=== PATIENT | male | born 1945 | race Caucasian/White ===

== ENCOUNTER 2022-09-03 07:33 | Emergency (ER) | payer MEDICARE, BC, SELFPAY ==
--- NOTE | ~2022-09-03 | XR_ITS ---
EXAMINATION: XR RIBS, LEFT WITH CHEST XR SHOULDER, LEFT XR HAND/WRIST, LEFT CLINICAL INFORMATION: Fall. Pain. COMPARISON: Chest radiograph dated 01/16/2018. TECHNIQUE: PA view of the chest as well as 3 views of the left ribs. AP, Grashey, and scapular Y views of the left shoulder. AP, oblique, lateral, and scaphoid views of the left hand and wrist. FINDINGS: LEFT RIBS AND CHEST: No focal airspace consolidation. No pleural effusion or pneumothorax. Stable cardiomediastinal silhouette. Right upper quadrant surgical clips. No displaced fracture. No concerning lytic or blastic osseous lesion. No abnormal soft tissue calcification. LEFT SHOULDER: No acute fracture or dislocation. Severe glenohumeral joint space narrowing with prominent flattening/bony remodeling, subchondral sclerosis, and large marginal osteophytes. Probable posterosuperior ossified loose bodies. Severe acromioclavicular joint space narrowing with large marginal osteophytes. LEFT HAND AND WRIST: No acute fracture or dislocation. Severe joint space narrowing with bony remodeling and marginal osteophytes at the 1st carpometacarpal joint with a radial ossified loose body measuring up to 1.1 cm. More [id number] osteoarthritis at the triscaphe joint. Additional osteoarthritis scattered throughout the interphalangeal joints, most prominent at the distal interphalangeal joints. There are associated central erosions as well as circumferential soft tissue swelling, consistent with erosive osteoarthritis. XR/XR shoulder LT min 2V IMPRESSION: LEFT RIBS: Unremarkable examination. LEFT SHOULDER: No acute fracture or dislocation. Severe glenohumeral and acromioclavicular osteoarthritis with ossified loose bodies. LEFT HAND AND LEFT WRIST: No acute fracture or dislocation. Severe osteoarthritis at the 1st carpometacarpal joint with a radial ossified loose body. More [id number] osteoarthritis at the triscaphe joint. Additional osteoarthritis scattered throughout the interphalangeal joints, most prominent at the distal interphalangeal joints. Central erosions and soft tissue swelling, consistent with erosive osteoarthritis.
--- NOTE | ~2022-09-03 | XR_ITS ---
EXAMINATION: XR RIBS, LEFT WITH CHEST XR SHOULDER, LEFT XR HAND/WRIST, LEFT CLINICAL INFORMATION: Fall. Pain. COMPARISON: Chest radiograph dated 01/16/2018. TECHNIQUE: PA view of the chest as well as 3 views of the left ribs. AP, Grashey, and scapular Y views of the left shoulder. AP, oblique, lateral, and scaphoid views of the left hand and wrist. FINDINGS: LEFT RIBS AND CHEST: No focal airspace consolidation. No pleural effusion or pneumothorax. Stable cardiomediastinal silhouette. Right upper quadrant surgical clips. No displaced fracture. No concerning lytic or blastic osseous lesion. No abnormal soft tissue calcification. LEFT SHOULDER: No acute fracture or dislocation. Severe glenohumeral joint space narrowing with prominent flattening/bony remodeling, subchondral sclerosis, and large marginal osteophytes. Probable posterosuperior ossified loose bodies. Severe acromioclavicular joint space narrowing with large marginal osteophytes. LEFT HAND AND WRIST: No acute fracture or dislocation. Severe joint space narrowing with bony remodeling and marginal osteophytes at the 1st carpometacarpal joint with a radial ossified loose body measuring up to 1.1 cm. More [id number] osteoarthritis at the triscaphe joint. Additional osteoarthritis scattered throughout the interphalangeal joints, most prominent at the distal interphalangeal joints. There are associated central erosions as well as circumferential soft tissue swelling, consistent with erosive osteoarthritis. XR/XR hand wrist LT IMPRESSION: LEFT RIBS: Unremarkable examination. LEFT SHOULDER: No acute fracture or dislocation. Severe glenohumeral and acromioclavicular osteoarthritis with ossified loose bodies. LEFT HAND AND LEFT WRIST: No acute fracture or dislocation. Severe osteoarthritis at the 1st carpometacarpal joint with a radial ossified loose body. More [id number] osteoarthritis at the triscaphe joint. Additional osteoarthritis scattered throughout the interphalangeal joints, most prominent at the distal interphalangeal joints. Central erosions and soft tissue swelling, consistent with erosive osteoarthritis.
--- NOTE | ~2022-09-03 | XR_ITS ---
EXAMINATION: XR RIBS, LEFT WITH CHEST XR SHOULDER, LEFT XR HAND/WRIST, LEFT CLINICAL INFORMATION: Fall. Pain. COMPARISON: Chest radiograph dated 01/16/2018. TECHNIQUE: PA view of the chest as well as 3 views of the left ribs. AP, Grashey, and scapular Y views of the left shoulder. AP, oblique, lateral, and scaphoid views of the left hand and wrist. FINDINGS: LEFT RIBS AND CHEST: No focal airspace consolidation. No pleural effusion or pneumothorax. Stable cardiomediastinal silhouette. Right upper quadrant surgical clips. No displaced fracture. No concerning lytic or blastic osseous lesion. No abnormal soft tissue calcification. LEFT SHOULDER: No acute fracture or dislocation. Severe glenohumeral joint space narrowing with prominent flattening/bony remodeling, subchondral sclerosis, and large marginal osteophytes. Probable posterosuperior ossified loose bodies. Severe acromioclavicular joint space narrowing with large marginal osteophytes. LEFT HAND AND WRIST: No acute fracture or dislocation. Severe joint space narrowing with bony remodeling and marginal osteophytes at the 1st carpometacarpal joint with a radial ossified loose body measuring up to 1.1 cm. More [id number] osteoarthritis at the triscaphe joint. Additional osteoarthritis scattered throughout the interphalangeal joints, most prominent at the distal interphalangeal joints. There are associated central erosions as well as circumferential soft tissue swelling, consistent with erosive osteoarthritis. XR/XR ribs LT min 3V w [id number] IMPRESSION: LEFT RIBS: Unremarkable examination. LEFT SHOULDER: No acute fracture or dislocation. Severe glenohumeral and acromioclavicular osteoarthritis with ossified loose bodies. LEFT HAND AND LEFT WRIST: No acute fracture or dislocation. Severe osteoarthritis at the 1st carpometacarpal joint with a radial ossified loose body. More [id number] osteoarthritis at the triscaphe joint. Additional osteoarthritis scattered throughout the interphalangeal joints, most prominent at the distal interphalangeal joints. Central erosions and soft tissue swelling, consistent with erosive osteoarthritis.
[2022-09-03 07:36] VITALS: BP 194/80; PULSE 72; RESP 16; TEMP 36.4; O2SAT 96; BMI 39.9
--- NOTE | 2022-09-03 07:57 | ED_ITS ---
HPI - Extremity Problem General Chief complaint: Extremity Injury, Upper Stated complaint: L shoulder injury Time Seen by Provider: 09/03/22 07:50 Source: patient and family Mode of arrival: ambulatory Limitations: no limitations History of Present Illness HPI Narrative: This is a 77-year-old male with a history of hypertension, hyperlipidemia, COPD, chronic kidney disease, insulin-dependent diabetes who is right-hand dominant who presents to the ER with left shoulder pain, left wrist pain and left rib pain after having a fall just prior to arrival. Patient reports he was chasing his dog when he tripped and fell hitting the left shoulder, left wrist and left ribs. Denies any his head or loss of consciousness. No AC therapy use. Patient is ambulatory into the ER. He denies any abdominal pain, vomiting, neck pain, back pain, vision changes. Related Data Previous Rx's Medication Instructions Recorded oxycodone 5 mg tablet 5 mg PO Q6H PRN pain #15 tabs 09/03/22 Allergies Allergy/AdvReac Type Severity Reaction Status Date / Time Penicillins [PCN] Allergy Unknown UNKNOWN Verified 09/03/22 07:39 Review of Systems Review of Systems: Yes all other systems are reviewed and are negative Constitutional: Constitutional: Reports no additional constitutional complaints, Denies body ache(s), Denies chills, Denies fever(s), Denies headache(s) and Denies weakness Eyes: Eyes: Reports no additional eye complaints and Denies change in vision ENT: Reports system reviewed and no additional complaints, except as documented, Denies dizziness, Denies headache(s), Denies nasal congestion, Denies nasal discharge and Denies neck pain Cardiovascular: Cardiovascular: Reports no additional cardiovascular complaints, Denies chest pain, Denies leg edema and Denies dyspnea Respiratory: Respiratory: Reports no additional respiratory complaints, Denies cough and Denies dyspnea Gastrointestinal: Gastrointestinal: Reports no additional gastrointestinal complaints, Denies abdominal pain, Denies diarrhea, Denies nausea and Denies vomiting Genitourinary: Genitourinary: Denies urinary incontinence Musculoskeletal: Musculoskeletal: Reports no additional musculoskeletal complaints, Denies back pain, Reports arthralgias, Reports joint swelling, Reports limited range of motion, Denies neck pain, Denies numbness and Denies tingling Integumentary/Breasts: Skin/Breast: Reports system reviewed and no additional complaints, except as docu and Denies rash Neurologic: Reports system reviewed and no additional complaints, except as documented, Denies Abnormal speech present, Denies dizziness, Denies headache(s), Denies numbness, Denies tingling and Denies weakness PMFSH Past Medical History Attestation statement: The following information was validated with the patient. Source: old records reviewed and nursing notes reviewed Social History Social History Advance Directives: Yes Advance Directives Information Provided: No Advance Directives on File: No Physical Exam Vital Signs: Vital Signs: Last Vital Signs Temp 97.6 F 09/03/22 07:36 Pulse 72 09/03/22 07:36 Resp 16 09/03/22 07:36 BP 194/80 H 09/03/22 07:36 Pulse Ox 96 09/03/22 07:36 O2 Del Method Room Air 09/03/22 07:36 BMI result Body Mass Index 39.9 Const: General: cooperative, healthy appearing, comfortable and no acute distress Orientation/consciousness: patient oriented x3 Limitations: no limitations HEENT: Head: Yes normal to inspection Ears: hearing grossly normal bilaterally General nose exam: Normal external nose present Face and si nus: Yes normal facial exam Mouth: Normal oral and palatal mucosa present Throat: Yes posterior oropharynx normal Eyes: General: appearance normal, both eyes and all related structures Pupils: Equal, round and reactive pupils present Neck: Neck: Yes normal visual inspection Chest: Other: Patient with tenderness over the left lateral chest wall with no crepitus, ecchymosis or deformity. Chest palpation & inspection: normal inspection of the chest Resp: Effort & Inspection: normal respiratory effort Auscultation: clear to auscultation bilaterally Cardio: Rate: regular rate Rhythm: regular rhythm Peripheral pulses: Peripheral pulses 2+ throughout GI: Inspection: Yes normal to inspection Palpation (GI): Soft to palpation and nontender Auscultation: normal bowel sounds Back/Spine/Pelvis: Thoracic/Lumbar Spine: thoracic and lumbar spine normal to inspection Skin: General skin exam: no rashes or lesions noted Neuro: General: patient oriented x3, moves all extremities, no focal motor deficits and normal sensation to monofilament Cranial nerves: Yes CN's II-XII intact bilaterally, Yes Equal, round and reactive pupils present, Yes Bilaterally intact EOM present, Yes Nystagmus not present, Yes Normal facial strength present and Yes Midline tongue present Cognition (Neuro): normal cognition Speech: No Abnormal speech present Gait exam (Neuro): Normal gait present Motor exam (neuro): 5/5 motor strength present throughout Sensory Exam: Normal double simultaneous stimulation for sensation Extrem: Other: The patient is holding the left shoulder in a guarded position. Patient is unable to abduct the extremity due to pain. Patient has palpable radial and ulnar pulses distally. Sensation is intact distally. Patient has no obvious deformity. Patient has swelling and tenderness over the left dorsal wrist with full range of motion both active and passive. Course Course Course Narrative: X-ray show no acute fracture. Likely contusion. There is severe degenerative changes which may also be contributing to the patient's pain. Patient with placed in a sling but I did tell him to use this intermittently and continue to perform range of motion, ice or heat and pain medicine at home. Here he has an orthopedic at [facility] I recommend he follow-up with them. Reviewed worrisome signs and symptoms when to return to the emergency room. Comfortable plan for discharge home Medications Administered Discontinued Medications Generic Name Dose Route Start Last Admin Trade Name Freq PRN Reason Stop Dose Admin Acetaminophen 975 mg 09/03/22 07:56 09/03/22 08:01 Acetaminophen 325 Mg Tablet PO 09/03/22 07:57 975 mg ONCE ONE Administration Oxycodone HCl 10 mg 09/03/22 07:56 09/03/22 08:01 Oxycodone Hcl Immed Release 5 Mg Tablet PO 09/03/22 07:57 10 mg ONCE ONE Administration Medical Decision Making Medical Decision Making [facility] Narrative: 77-year-old male here with left rib pain, left shoulder and wrist pain after mechanical fall just prior to arrival with no reports of hitting of the head, loss of consciousness or AC therapy use. Patient with tenderness over the left lateral chest wall with no ecchymosis, crepitus or deformity. No abdominal pain on exam. Lungs are clear. Vitals are stable. Patient with also some tenderness and limited range of motion of the left shoulder and swelling and tenderness of the left wrist. Will check x-rays of left wrist, left shoulder and left chest Differential Diagnosis Differential Diagnoses: The differential diagnosis associated with the presentation includes Fracture, contusion Independent Interpretation I performed an independent interpretation of an: Plain X-Ray Interpretation: I independently reviewed the x-ray and agree with the radiologist's report Radiology Impression Discussion of test interpretation with radiology: I have reviewed the radiologist's reading. Radiologist Impression: FINDINGS: LEFT RIBS AND CHEST: No focal airspace consolidation. No pleural effusion or pneumothorax. Stable cardiomediastinal silhouette. Right upper quadrant surgical clips. No displaced fracture. No concerning lytic or blastic osseous lesion. No abnormal soft tissue calcification. LEFT SHOULDER: No acute fracture or dislocation. Severe glenohumeral joint space narrowing with prominent flattening/bony remodeling, subchondral sclerosis, and large marginal osteophytes. Probable posterosuperior ossified loose bodies. Severe acromioclavicular joint space narrowing with large marginal osteophytes. LEFT HAND AND WRIST: No acute fracture or dislocation. Severe joint space narrowing with bony remodeling and marginal osteophytes at the 1st carpometacarpal joint with a radial ossified loose body measuring up to 1.1 cm. More [id number] osteoarthritis at the triscaphe joint. Additional osteoarthritis scattered throughout the interphalangeal joints, most prominent at the distal interphalangeal joints. There are associated central erosions as well as circumferential soft tissue swelling, consistent with erosive osteoarthritis. XR/XR shoulder LT min 2V IMPRESSION: LEFT RIBS: Unremarkable examination. ? LEFT SHOULDER: No acute fracture or dislocation. Severe glenohumeral and acromioclavicular osteoarthritis with ossified loose bodies. ? LEFT HAND AND LEFT WRIST: No acute fracture or dislocation. Severe osteoarthritis at the 1st carpometacarpal joint with a radial ossified loose body. More [id number] osteoarthritis at the triscaphe joint. Additional osteoarthritis scattered throughout the interphalangeal joints, most prominent at the distal interphalangeal joints. Central erosions and soft tissue swelling, consistent with erosive osteoarthritis. Discharge Plan Discharge Clinical Impression: Contusion of left shoulder Patient Disposition: Home, Self-Care Instructions: Contusion in Adults (ED) Additional Instructions: Use the sling sparingly Apply heat to the area and perform gentle range of motion Follow-up with your orthopedic doctor mariela Prescriptions: New oxycodone 5 mg tablet 5 mg PO Q6H PRN (Reason: pain) Qty: 15 0RF Rx Instructions: Partial Fill upon patient request. Referrals: iMke Yi MD [Physician] - 1 week Interventions: ED Discharge Assessment Last Done: 09/03/22 09:46 Discharge Date/Time: 09/03/22 09:47
[2022-09-03] MEDS: Acetaminophen 325 MG TABLET 975 MG PO (08:01)
[2022-09-03] MEDS: oxyCODONE HCl Immed Release 5 MG TABLET 10 MG PO (08:01)
--- NOTE | 2022-09-03 09:39 | MHC.EDTECH ---
Sling applied to pt comofrtably
== END 2022-09-03 09:47 | disposition home or self-care (01) ==
PROVIDERS: Emergency Provider Emergency Medicine; PCP Family Medicine
DX: S40.012A Contusion of left shoulder, initial encounter (principal); M25.512 Pain in left shoulder; M25.532 Pain in left wrist; R07.81 Pleurodynia; E11.9 Type 2 diabetes mellitus without complications; W01.10XA Fall on same level from slipping, tripping and stumbling with subsequent striking against unspecified object, initial encounter; Y93.9 Activity, unspecified; Y92.9 Unspecified place or not applicable; Y99.9 Unspecified external cause status; Z79.4 Long term (current) use of insulin; Z79.899 Other long term (current) drug therapy
CPT/HCPCS: 71101; 73030; 73110; 73130; 99283; 99284

== ENCOUNTER → 2023-01-16 10:06 | Outpatient (BNVA) | payer MEDICARE, BC, SELFPAY | PROVIDERS: PCP Family Medicine; Visit Provider Physician Assistant Surgical ==

== ENCOUNTER 2023-02-12 | Outpatient (REF) | payer MEDICARE, BC, SELFPAY ==
[2023-02-15 14:37] LABS: H Pylori Breath Test Negative (Negative)
== END 2023-02-12 00:01 | disposition home or self-care (01) ==
LOC: HO.LNP
PROVIDERS: Visit Provider Physician Assistant Surgical
DX: E66.9 Obesity, unspecified (principal); E11.22 Type 2 diabetes mellitus with diabetic chronic kidney disease; I12.9 Hypertensive chronic kidney disease with stage 1 through stage 4 chronic kidney disease, or unspecified chronic kidney disease; N18.9 Chronic kidney disease, unspecified; Z11.0 Encounter for screening for intestinal infectious diseases
CPT/HCPCS: 83013

== ENCOUNTER 2023-02-12 13:52 | Outpatient (AMB) | payer MEDICARE, BC, SELFPAY ==
--- NOTE | 2023-02-12 14:02 | MHC.OFFVISWM ---
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 Allergies Penicillins [PCN] Allergy (Unknown, Verified 09/03/22 07:39) UNKNOWN Medication List - Last Reconciled 02/12/23 by SHERIE Thomas albuterol sulfate 90 mcg/actuation inhalation allopurinol mg PO amlodipine 10 mg PO DAILY atorvastatin 80 mg PO DAILY calcitriol 0.5 mcg PO DAILY carvedilol 25 mg PO BID cholecalciferol (vitamin D3) 50 mcg PO DAILY clonidine HCl 0.1 mg PO TID doxazosin mg PO duloxetine 120 mg PO DAILY fluticasone furoate-vilanterol 200-25 mcg/dose (Breo Ellipta) 1 ea inhalation DAILY insulin glargine (Basaglar KwikPen U-100 Insulin) units subcut semaglutide (Ozempic) 0.25 mg subcut QWEEK tamsulosin 0.4 mg PO DAILY HPI HPI Comments History of Present Illness Details Pt is here to start the [facility] weight loss program. He heard about our program from a sign in the ER. His goal is to lose weight and achieve a healthy lifestyle as well as to improve, if not resolve, obesity related medical conditions, including dm, htn, dea. He reports first being concerned about his weight 20 years ago, highest weight to date was 315. He originally presented to the [facility] clinic on 01/16/23 with a weight of 315.4 pounds and a BMI of 39.9. Current weight is 314.6 pounds with a BMI of 39.8. He has tried multiple methods of weight loss including fad diets without permanent results. He lives with his . 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 He wakes at:?8 am, and goes to bed at?930 pm. Dinner is at 5 pm. Breakfast: cereal raison bran or cheerios w skim milk or toast or yogurt AM snack: skip Lunch: sandwich or two sandwiches, salad or tuna PM snack: fruit Dinner: chicken parm, beef stroganoff, fish, After dinner: frozen ice cream and fruit Other snacks: none Liquids: 24 oz water, 1-2 cans diet coke daily, 24 oz lemonade, 3 diet snapple per week Alcohol/marijuana/tobacco intake: none Exercise: none, no gym membership, no exercise equip in the home. GERD score: 0 DEMETRIS score: 2 ESS score: 3 QOL score: 91 PENDING SALE TO [facility] Surgical History (Updated 02/12/23 @ 16:30 by SHERIE Thomas) Hx of arthroscopic knee surgery Hx of colonoscopy Hx of appendectomy Hx of total knee replacement Hx of bilateral hip replacements Hx laparoscopic cholecystectomy Social History Alcohol intake: never Patient Tobacco Use Status: Never used Tobacco Physical Exam Vital Signs: BMI result Body Mass Index 39.8 Const General: cooperative, healthy appearing and no acute distress Orientation/consciousness: patient oriented x3 HEENT Head: Yes normal to inspection Ears: hearing grossly normal bilaterally General nose exam: Normal external nose present Face and sinus: Yes normal facial exam Eyes General: appearance normal, both eyes and all related structures Resp Effort & Inspection: normal respiratory effort Auscultation: clear to auscultation bilaterally Cardio Rate: regular rate Rhythm: regular rhythm Heart sounds: S1 normal heart sound present and S2 normal heart sound present GI Inspection: Yes normal to inspection, No distended, Yes incision (chevron incision well healed) and Yes obesity Palpation (GI): Soft to palpation, nontender and no guarding Auscultation: normal bowel sounds Skin General skin exam: no rashes or lesions noted Neuro General: patient oriented x3 Extrem General: Yes edema (2+ L>R LE edema) Psych Appearance: grossly normal Mental Status: mental status grossly normal Speech and movement: Normal speech and movement present Affect: normal affect Attitude: cooperative Assessment & Plan Assessment & Plan (1) Obesity (BMI 30-39.9): Code(s): E66.9 - Obesity, unspecified Plan: This is a?77 yo male who will start our SWL program to prepare for bariatric surgery.? Blood work, h pylori , CXR, ECG, Abd US and UGI have been ordered. He is being scheduled for RD and BH initial consultations. He will start SWL classes and watch the first three videos before his next appointment. ? Adequate sleep of 7-8 hours per night is recommended, awakening at 8 am and going to bed around 930 pm ? Purchase body composition analyzer scale (Connor gacria or Ollie recommended) and check weight weekly. The best time to do this is first thing in the morning after going to the bathroom. 1. Nutritional counseling: Be sure to careful read the number of scoops per shake Start with 3 Celebrate Rebuild shakes ([facility] [employer], [employer], [employer]) First shake, (2 scoops in 20 oz low fat unsweetened almond milk, 30 calories) at 9am-11am, Second shake, (2 scoops in 20 oz low fat unsweetened almond milk, 30 calories) at 11am-1pm 1 Celebrate protein bar ([facility] [employer], [employer], [employer]) at 1pm-3pm Dinner at 5pm (11 forks of protein and 11 forks of salad/vegetables). Meal to include lean meat (beef, fish, pork, turkey, chicken), cooked vegetables or a salad with olive oil and/or fruits (berries, pears, apples, kiwi). Avoid salt, breads, potatoes, rice, pasta, desserts. Another protein bar at 7pm-9pm. Try to drink 64 oz of water daily and avoid soda and juices. ?2. Each shake would be drunk slowly, like coffee in a period of 2 hours. ?3. Cut each bar in 4 pieces and eat each piece in 30 min ?to make each bar last 2 hours. ?4. I emphasized the importance of measuring accurately the food portion and measure it carefully when serving the food on the plate ?5. The meal portions include 11 full-size forks of meat and 11 full-size forks of salad. You always eat the meat portion but you can replace up to half of the forks of salad/vegetables with rice, potatoes or pasta, or a fruit ?if you like. The less you do it the better weight loss will be. ?6. One full-size fork is what can be scooped on the fork without falling aside and not what can be bit with the fork. Use regular forks like those you find in a typical restaurant. ?7.? Please send me weight measurements as soon as possible and then once a week. Always include your diet and exercise plan. Alternatively come weekly at the office for weight checks and send me the measurements. ?8. Exercise counseling: Begin by watching a stretching for beginners video. Start slowly and begin to stretch your muscles. You should do this before and after each exercise session to prevent injury. Please join [facility] gym near your home. Ask the emergency preparedness manager or one of the trainers how to use the machines if you are unfamiliar with them. Start elliptical with a resistance of 0. Increase resistance by 1 every 3 min to your most comfortable resistance with a max resistance of 6. Reduce the resistance by 1 every 3 minutes back down to 2 and repeat cycles for 300 calories. Alternatively, start treadmill with a speed of 2.0 and incline of 0, increasing incline by 1 every 3 minutes to the highest comfortable level (max 6 for now) then decrease in the same fashion. Repeat process to a goal of 300 calories. Goal of 2000 calories burned or more weekly. You may also consider use of the stationary bike. The easiest would be to chose the fat-burn or interval training program on the machine and do this until you reach the 300 calorie goal. Alternatively, you can manually adjust the resistance in a similar fashion as mentioned above, (resistance of 0-6 with a goal speed of 12 mph). Tracking calories is essential. 9. Alternatively start walking outside daily, tracking calories with a goal of 300 calories per day, daily. You can download the [employer] which can track your time, distance and calories while walking outside. You press start in the jo[employer]quin when you start and then stop when you are finished. 10.? It is important to communicate by text weekly your weight measurements and if you are having any problems with the plans. It is also critical that you pay very close attention to your blood sugars and your blood pressure. Check you blood sugar at least twice a day when you start these plans. Also check your blood pressure daily if you can. You mentioned that you have a BP cuff at home but there may be an issue with it. I would be happy to look at it when you come in to your next appointment. 11. Please get labs, EKG and chest X-Ray within 1 week. 12. Discussed and answered all questions regarding?obtained consent to participate in the [facility]?Registry. 13. Please follow the diet plan exactly, without any change. If you do not like something about the plan or you feel hungry, you need to communicate with me so I can help you revise the plan. You should not change the plan yourself. Text me at [phone] 14. Goal is to lose at least 12 pounds in the first month 15. Goal is to lose 10% of your weight before surgery, which is about 31 lbs. Ultimate weight goal: 283 lbs before surgery Patient is obese and is not considered stable at this time.?I spent a total of 70 minutes reviewing/updating records, examining the patient and counseling the patient on weight management as detailed above. Orders: Orders Insulin Today E11.9 - Type 2 diabetes mellitus without complications, E66.9 - Obesity, unspecified, I10 - Essential (primary) hypertension, N18.9 - Chronic kidney disease, unspecified IRON PROFILE Today E11.9 - Type 2 diabetes mellitus without complications, E66.9 - Obesity, unspecified, I10 - Essential (primary) hypertension, N18.9 - Chronic kidney disease, unspecified Zinc Today E11.9 - Type 2 diabetes mellitus without complications, E66.9 - Obesity, unspecified, I10 - Essential (primary) hypertension, N18.9 - Chronic kidney disease, unspecified Vitamin B1 Today E11.9 - Type 2 diabetes mellitus without complications, E66.9 - Obesity, unspecified, I10 - Essential (primary) hypertension, N18.9 - Chronic kidney disease, unspecified Vitamin A Today E11.9 - Type 2 diabetes mellitus without complications, E66.9 - Obesity, unspecified, I10 - Essential (primary) hypertension, N18.9 - Chronic kidney disease, unspecified Vitamin D 25-OH Total Today E11.9 - Type 2 diabetes mellitus without complications, E66.9 - Obesity, unspecified, I10 - Essential (primary) hypertension, N18.9 - Chronic kidney disease, unspecified Hemoglobin A1c Today E11.9 - Type 2 diabetes mellitus without complications, E66.9 - Obesity, unspecified, I10 - Essential (primary) hypertension, N18.9 - Chronic kidney disease, unspecified XR chest 2V Today E11.9 - Type 2 diabetes mellitus without complications, E66.9 - Obesity, unspecified, I10 - Essential (primary) hypertension, N18.9 - Chronic kidney disease, unspecified FL upper GI w air Today E11.9 - Type 2 diabetes mellitus without complications, E66.9 - Obesity, unspecified, I10 - Essential (primary) hypertension, N18.9 - Chronic kidney disease, unspecified Lipid Panel Today E11.9 - Type 2 diabetes mellitus without complications, E66.9 - Obesity, unspecified, I10 - Essential (primary) hypertension, N18.9 - Chronic kidney disease, unspecified Complete Blood Count Auto Diff Today E11.9 - Type 2 diabetes mellitus without complications, E66.9 - Obesity, unspecified, I10 - Essential (primary) hypertension, N18.9 - Chronic kidney disease, unspecified Vitamin B12 and Folate Today E11.9 - Type 2 diabetes mellitus without complications, E66.9 - Obesity, unspecified, I10 - Essential (primary) hypertension, N18.9 - Chronic kidney disease, unspecified Comprehensive Met. Panel Today E11.9 - Type 2 diabetes mellitus without complications, E66.9 - Obesity, unspecified, I10 - Essential (primary) hypertension, N18.9 - Chronic kidney disease, unspecified C Reactive Protein Today E11.9 - Type 2 diabetes mellitus without complications, E66.9 - Obesity, unspecified, I10 - Essential (primary) hypertension, N18.9 - Chronic kidney disease, unspecified Ferritin Today E11.9 - Type 2 diabetes mellitus without complications, E66.9 - Obesity, unspecified, I10 - Essential (primary) hypertension, N18.9 - Chronic kidney disease, unspecified PTHI Today E11.9 - Type 2 diabetes mellitus without complications, E66.9 - Obesity, unspecified, I10 - Essential (primary) hypertension, N18.9 - Chronic kidney disease, unspecified TSH reflex Free T4 Today E11.9 - Type 2 diabetes mellitus without complications, E66.9 - Obesity, unspecified, I10 - Essential (primary) hypertension, N18.9 - Chronic kidney disease, unspecified H Pylori Breath Test Today E11.9 - Type 2 diabetes mellitus without complications, E66.9 - Obesity, unspecified, I10 - Essential (primary) hypertension, N18.9 - Chronic kidney disease, unspecified US abdomen comp w elastography Today E11.9 - Type 2 diabetes mellitus without complications, E66.9 - Obesity, unspecified, I10 - Essential (primary) hypertension, N18.9 - Chronic kidney disease, unspecified ECG 12 lead EKG Today E11.9 - Type 2 diabetes mellitus without complications, E66.9 - Obesity, unspecified, I10 - Essential (primary) hypertension, N18.9 - Chronic kidney disease, unspecified Referrals Behavioral Health Referral E11.9 - Type 2 diabetes mellitus without complications, E66.9 - Obesity, unspecified, I10 - Essential (primary) hypertension, N18.9 - Chronic kidney disease, unspecified Nutrition/Dietitian Referral E11.9 - Type 2 diabetes mellitus without complications, E66.9 - Obesity, unspecified, I10 - Essential (primary) hypertension, N18.9 - Chronic kidney disease, unspecified Coding Level of Care Code New Pt Level 5 (52569) Diagnoses Obesity (BMI 30-39.9) E66.9 Time Spent (min) 90
[2023-02-12 14:09] VITALS: BMI 39.8
== END 2023-02-12 17:12 | disposition home or self-care (01) ==
PROVIDERS: PCP Family Medicine; Visit Provider Physician Assistant Surgical
DX: E66.9 Obesity, unspecified (principal); Z68.39 Body mass index [BMI] 39.0-39.9, adult
CPT/HCPCS: 99205

== ENCOUNTER → 2023-02-12 13:52 | Outpatient (BNVA) | payer MEDICARE, BC, SELFPAY | PROVIDERS: PCP Family Medicine; Visit Provider Physician Assistant Surgical | DX: Z11.0 Encounter for screening for intestinal infectious diseases (principal); E66.9 Obesity, unspecified; Z68.39 Body mass index [BMI] 39.0-39.9, adult | CPT/HCPCS: 83013; 99211 ==

== ENCOUNTER 2023-02-13 09:32 | Outpatient (REF) | payer MEDICARE, BC, SELFPAY ==
--- NOTE | ~2023-02-13 | XR_ITS ---
EXAMINATION: XR CHEST CLINICAL INFORMATION: Obesity COMPARISON: 09/03/2022 TECHNIQUE: 2 views of the chest were obtained. FINDINGS: Heart and mediastinum within normal limits. No vascular congestion. Minor basilar atelectasis with suboptimal inspiration. No consolidations, effusions or vascular congestion. Surgical clips right upper quadrant. Flowing osteophytes throughout the thoracic spine. XR/XR chest 2V IMPRESSION: Low lung volumes with mild basilar atelectasis.
--- NOTE | 2023-02-13 09:39 | ECG_ITS ---
Test Reason : obesity Blood Pressure : / mmHG Vent. 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
[2023-02-13 10:35] LABS: Basophils Percent Auto 0.3 % (0-2); Eosinophils Absolute Auto 0.2 X10*3/uL (0.0-0.4); Eosinophils Percent Auto 1.5 % (0-4); Hematocrit 36.6 % (42.0-52.0); Hemoglobin 11.4 g/dl (14.0-18.0); Imm Gran Abs Auto 0.11 X10*3/uL (0.00-0.03); Imm Gran Pct Auto 0.8 % (0.0-0.4); Lymphocytes Percent Auto 46.9 % (20-40); MANUAL DIFF FLAG SCAN; Mean Corpuscular HGB Conc 31.1 g/dl (31.0-36.0); Mean Corpuscular Hemoglobin 28.6 pg (27.0-33.0); Mean Platelet Volume 10.1 fL (9.4-12.4); Monocytes Absolute Auto 0.7 X10*3/uL (0.1-1.2); Monocytes Percent Auto 4.8 % (2-11); Neutrophils Absolute Auto 6.4 x10*3/uL (2.0-8.3); Neutrophils Percent Auto 45.7 % (45-73); Platelet Count 195 X10*3/uL (160-400); Red Blood Count 3.98 X10*6/uL (4.60-5.80); Red Cell Distribution Width 13.7 % (11.0-16.0); SCAN SMEAR FLAG 1; White Blood Count 13.9 X10*3/uL (4.8-10.8)
[2023-02-13 10:37] LABS: Lymphocytes Absolute Auto 6.5 X10*3/uL (1.2-4.9)
[2023-02-13 10:52] LABS: Estimated Average Glucose 131 mg/dL; Hemoglobin A1c % 6.2 % (<6.0)
[2023-02-13 11:18] LABS: Alanine Aminotransferase 16 U/L (0-40); Albumin Level 3.8 g/dL (3.5-5.0); Alkaline Phosphatase 128 U/L (39-117); Anion Gap 13 (12-20); Aspartate Amino Transferase 14 U/L (5-37); Bilirubin Total 0.7 mg/dL (0.0-1.0); Blood Urea Nitrogen 28 mg/dL (9-16); C Reactive Protein 0.44 mg/dL (< or = 0.50); Calcium 10.4 mg/dL (8.4-10.2); Carbon Dioxide 26 mmol/L (22-29); Chloride 107 mmol/L (96-108); Cholesterol 150 mg/dL (<200); Estimated Glomerular Filt Rate 25; Glucose Random 81 mg/dL (60-115); HDL Cholesterol 34 mg/dL (>40); Iron 58 mcg/dL (45-160); LDL Cholesterol Calculated 84 mg/dL (<100); Percent Iron Saturation 28 % (15-50); Sodium 142 mmol/L (135-145); Total Iron Binding Capacity 207 mcg/dL (228-428); Total Protein 6.6 g/dL (6.5-8.0); Triglycerides 163 mg/dL (<150); Unsaturated Iron Binding 149 ug/dL
[2023-02-13 11:36] LABS: Folate 11.4 ng/mL (> or = 4.0); Vitamin B12 360 pg/mL (200-900)
[2023-02-13 11:37] LABS: Ferritin 104 ng/mL (20-250); Insulin 38 uU/mL (2-29); TSH reflex Free T4 2.83 uIU/mL (0.32-4.0); Vitamin D 25-OH Total 42.3 ng/mL (>30)
[2023-02-13 12:59] LABS: SLIDE REVIEW VERIFIED
[2023-02-15 16:19] LABS: PTHI 49 pg/mL (16-77)
[2023-02-16 18:14] LABS: Zinc 66 mcg/dL (60-130)
[2023-02-18 14:43] LABS: Vitamin B1 10 nmol/L (8-30)
[2023-02-19 18:08] LABS: Vitamin A 79 mcg/dL (38-98)
== END 2023-02-13 09:33 | disposition home or self-care (01) ==
LOC: HO.XRAY 09:32
PROVIDERS: PCP Family Medicine; Visit Provider Physician Assistant Surgical
DX: E66.9 Obesity, unspecified (principal); I12.9 Hypertensive chronic kidney disease with stage 1 through stage 4 chronic kidney disease, or unspecified chronic kidney disease; E11.22 Type 2 diabetes mellitus with diabetic chronic kidney disease; N18.9 Chronic kidney disease, unspecified
CPT/HCPCS: 36415; 71046; 80053; 80061; 82306; 82607; 82728; 82746; 83036; 83525; 83540; 83970; 84425; 84443; 84590; 84630; 85025; 86140; 93005

== ENCOUNTER → 2023-03-02 15:06 | Outpatient (BNVA) | payer MEDICARE, BC, SELFPAY | PROVIDERS: PCP Family Medicine; Visit Provider Dietitian, Registered | DX: F32.A Depression, unspecified (principal) | CPT/HCPCS: 97802 ==

== ENCOUNTER 2023-08-15 10:29 | Outpatient (REF) | payer MEDICARE, BC, SELFPAY ==
[2023-08-15 12:56] LABS: Basophils Percent Auto 0.5 % (0-2); Eosinophils Absolute Auto 0.2 X10*3/uL (0.0-0.4); Eosinophils Percent Auto 2.5 % (0-4); Hematocrit 36.3 % (42.0-52.0); Hemoglobin 11.4 g/dl (14.0-18.0); Imm Gran Abs Auto 0.02 X10*3/uL (0.00-0.03); Imm Gran Pct Auto 0.3 % (0.0-0.4); Lymphocytes Absolute Auto 4.3 X10*3/uL (1.2-4.9); Lymphocytes Percent Auto 66.9 % (20-40); MANUAL DIFF FLAG SCAN; Mean Corpuscular HGB Conc 31.4 g/dl (31.0-36.0); Mean Corpuscular Hemoglobin 28.6 pg (27.0-33.0); Mean Corpuscular Volume 91.2 fL (80.0-98.0); Mean Platelet Volume 10.2 fL (9.4-12.4); Monocytes Absolute Auto 0.6 X10*3/uL (0.1-1.2); Monocytes Percent Auto 9.2 % (2-11); Neutrophils Absolute Auto 1.3 x10*3/uL (2.0-8.3); Neutrophils Percent Auto 20.6 % (45-73); Platelet Count 166 X10*3/uL (160-400); Red Blood Count 3.98 X10*6/uL (4.60-5.80); Red Cell Distribution Width 14.6 % (11.0-16.0); SCAN SMEAR FLAG 1; White Blood Count 6.4 X10*3/uL (4.8-10.8)
[2023-08-15 13:34] LABS: Alanine Aminotransferase 16 U/L (0-40); Albumin Level 4.1 g/dL (3.5-5.0); Alkaline Phosphatase 81 U/L (39-117); Anion Gap 11 (12-20); Aspartate Amino Transferase 12 U/L (5-37); Bilirubin Total 0.6 mg/dL (0.0-1.0); Blood Urea Nitrogen 43 mg/dL (9-16); C Reactive Protein < 0.10 mg/dL (< or = 0.50); Calcium 10.4 mg/dL (8.4-10.2); Carbon Dioxide 27 mmol/L (22-29); Chloride 110 mmol/L (96-108); Estimated Glomerular Filt Rate 25; Glucose Random 103 mg/dL (60-115); Potassium 4.9 mmol/L (3.3-5.1); Sodium 143 mmol/L (135-145); Total Protein 6.7 g/dL (6.5-8.0)
[2023-08-15 13:49] LABS: Ferritin 64 ng/mL (20-250)
[2023-08-15 14:04] LABS: Erythrocyte Sedimentation Rate 12 MM/HR (0-15)
[2023-08-15 14:05] LABS: SLIDE REVIEW VERIFIED
[2023-08-16 21:23] LABS: Transglutaminase IgA <1.0 U/mL
[2023-08-20 09:43] LABS: Endomysial IgA Antibody Negative (Negative)
== END 2023-08-15 10:30 | disposition home or self-care (01) ==
LOC: HO.LAB 10:29
PROVIDERS: PCP Family Medicine; Visit Provider Physician Assistant
DX: D64.9 Anemia, unspecified (principal); K52.9 Noninfective gastroenteritis and colitis, unspecified; N18.9 Chronic kidney disease, unspecified
CPT/HCPCS: 36415; 80053; 82728; 85025; 85652; 86140; 86231; 86364; 99202

== ENCOUNTER 2023-08-15 10:29 | Outpatient (AMB) | payer MEDICARE, BC, SELFPAY ==
--- NOTE | 2023-08-15 10:31 | A.OFFVIS_ITS ---
Intake Vital Signs 08/15/23 10:39 Height 6 ft 2.5 in Weight 284 lb BMI 36.0 BP 149/67 H Blood Pressure Location Lt brachial Position Sitting Pulse 56 Intake Visit Reasons: Diarrhea Intake Note: new consult for Diarrhea patient cc: diarrhea and constipation for years, denies any other GI issues. 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 His sx got worse after wt management diet- unable to tolerate- went of diet due to carb deficient- diarrhea persisted- imodium- worked like a charm-however needs to take every day-though he does get urgent he has had episodes of incontinence-this is certainly disturbing for him, understands Colonoscopy-many years ago about 15 Stools seem to be abit more solid 1QD or QOD- doesn't feel empty- taking imodium- PCP did stool studies- all neg-blood work Appetite is good TTG > 10 ( weak positive) No N/V/ fever or chills He has lost weight-about 30-40 pounds-while dieting fecal ariadna- neg- He has no nausea, vomiting hematemesis, hematochezia fever or chills Insulin for diabetes his blood sugars have been well-controlled He is retired he and his stay active [facility] Surgical History Hx of arthroscopic knee surgery Hx of colonoscopy Hx of appendectomy Hx of total knee replacement Hx of bilateral hip replacements Hx laparoscopic cholecystectomy Social History (Updated 08/15/23 @ 10:49 by Beryl Barr PA-C) Household Members Other:: Alcohol intake: never Patient Tobacco Use Status: Never used Tobacco Review of Systems Const All systems reviewed & are unremarkable except as noted in HPI and below Card Denies chest pain and Denies dyspnea Resp Denies dyspnea GI Denies abdominal pain, Denies hematochezia, Denies GI cramping, Denies heartburn, Reports fecal incontinence, Reports diarrhea and Reports loose stools Physical Exam Vital Signs: Last Vital Signs Pulse 56 08/15/23 10:39 BP 149/67 H 08/15/23 10:39 BMI result Body Mass Index 36.0 Const General: cooperative and comfortable Nutritional Appearance: overweight Orientation/consciousness: patient oriented x3 Limitations: no limitations Eyes Sclerae: sclerae normal Resp Effort & Inspection: normal respiratory effort and able to speak in complete sentences Auscultation: clear to auscultation bilaterally, no rales, no rhonchi and no wheezes Cardio Rate: regular rate Rhythm: regular rhythm Heart sounds: S1 normal heart sound present GI Inspection: Yes Abdominal panniculus present and Yes obesity Palpation (GI): Soft to palpation and nontender Auscultation: normal bowel sounds Skin General skin exam: no rashes or lesions noted Neuro General: patient oriented x3 Extrem General: Yes full ROM Psych Appearance: grossly normal and well kempt Mental Status: mental status grossly normal Speech and movement: Normal speech and movement present and Clear speech present Affect: normal affect Thought process: Normal thought process present Thought content: Normal thought content present Insight: Good insight present (Psych) Judgement: Good judgement present (Psych) Assessment & Plan Assessment & Plan (1) Chronic diarrhea: Comment: Very pleasant Gent years of diarrhea However seems to have worsened has had episodes of urgency, incontinence Reviewed stool studies all negative to include C diff, Giardia, fecal ariadna Code(s): K52.9 - Noninfective gastroenteritis and colitis, unspecified Plan: EGD r/o CD- colonoscopy-r/o chronic or infectious(less likely) (2) CKD (chronic kidney disease): Comment: Dr. Suero Code(s): N18.9 - Chronic kidney disease, unspecified Plan: Has follow-up Plan EGD/Colon- [place]- PEG prep no DM meds morning of procedure Orders: Orders Complete Blood Count Auto Diff Today K52.9 - Noninfective gastroenteritis and colitis, unspecified Ferritin Today D64.9 - Anemia, unspecified Transglutaminase IgA Today R19.7 - Diarrhea, unspecified Endomysial IgA rflx Titer Today K52.9 - Noninfective gastroenteritis and colitis, unspecified, N18.9 - Chronic kidney disease, unspecified Erythrocyte Sedimentation Rate Today R19.7 - Diarrhea, unspecified Comprehensive Met. Panel Today K52.9 - Noninfective gastroenteritis and colitis, unspecified, N18.9 - Chronic kidney disease, unspecified C Reactive Protein Today K52.9 - Noninfective gastroenteritis and colitis, un specified, N18.9 - Chronic kidney disease, unspecified Medications: New peg 3350-electrolytes 240-22.72-6.72 -5.84 gram until fecal effluent is clear 240 mL PO Q10M PRN 4,000 mL 0RF colonoscopy Patient Instructions: EGD/Colon-Dr. [place]- PEG prep Discussed procedures, rare risks need for escorted due to anesthesia and prep reviewed literature given no DM meds morning of procedure He may continue Imodium He will have labs to update Encouraged to call with any questions or concerns We appreciate the opportunity assist in the care this pleasant gent Coding Level of Care Code New Pt Level 4 (64438) Diagnoses Chronic diarrhea K52.9 CKD (chronic kidney disease) N18.9 Time Spent (min) 40
[2023-08-15 10:39] VITALS: BP 149/67; PULSE 56; BMI 36.0
== END 2023-08-15 11:26 | disposition home or self-care (01) ==
PROVIDERS: PCP Family Medicine; Visit Provider Physician Assistant
DX: K52.9 Noninfective gastroenteritis and colitis, unspecified (principal); N18.9 Chronic kidney disease, unspecified
CPT/HCPCS: 99204; 99214

== ENCOUNTER 2023-12-17 06:52 | Day surgery (SDC) | payer MEDICARE, BC, SELFPAY ==
[2023-12-13 14:27] VITALS: BMI 36.0
[2023-12-13 14:43] VITALS: BMI 36.0
--- NOTE | 2023-12-17 06:36 | MHC.SHP ---
Pre-Procedural Eval Section A - 24 Hr Update-Section A only Date of Service: 12/17/23 Section B - Complete if H&P > 30 days Chief Complaint: diarrhea Relevant Family History (Specify if Yes): No Relevant Social History: None Present Medications: see Short Stay Collaborative assessment Medical History: Significant History (dm,ckd,htn,obesity) History of Previous Operations: Relevant previous surgery/procedure and date(s) (Hx of arthroscopic knee surgery Hx of colonoscopy Hx of appendectomy Hx of total knee replacement Hx of bilateral hip replacements Hx laparoscopic cholecystectomy) Allergies: Allergies Allergy/AdvReac Type Severity Reaction Status Date / Time Penicillins [PCN] Allergy Unknown UNKNOWN Verified 08/15/23 10:29 Review of Systems Sugical H&P ROS: Negative: Constitution, Cardiovascular, Respiratory, Neurological, Psychiatric, Hem-Onc, Allergic/Immunologic, Gastrointestinal, Genitourinary, Musculoskeletal, Integumentary, Endocrine and Eyes/Ears/Nose/Throat Exam Surgical H&P Exam: Normal: HEENT, Normal: Heart, Normal: Lungs, Normal: Extremities, Normal: Abdomen, Normal: Skin and Normal: Neurological Plan Diagnosis/Plan: Unchanged I have reviewed the history and physical and performed a pertinent physical examination on my patient. No changes have occurred unless specified. Time Spent With Patient Time: Total time managing care of this patient today ____ minutes.
[2023-12-17 07:25] VITALS: BP 184/71; PULSE 62; RESP 20; TEMP 36.3; O2SAT 99
[2023-12-17] MEDS: Lactated Ringers 1,000 ML 100 ML IVCONT (07:33)
[2023-12-17 07:44] LABS: Glucose, Whole Blood 72 mg/dL (60-115)
--- NOTE | 2023-12-17 08:00 | P.CONAN_ITS ---
Documented by User: Karen Jovel NP 12/14/23 10:24 HPI - Anesthesia Eval Consult details Narrative: 78yo M for Upper Endoscopy and Colonoscopy CRI with baseline creat 2.5 PMFSH Active Problems Active Problems: All Active Problems Chronic diarrhea (Acute) CKD (chronic kidney disease) (Acute) HTN (hypertension) (Acute) Diabetes (Acute) Obesity (BMI 30-39.9) (Acute) Past Medical History Medical History (Updated 12/13/23 @ 14:42 by Na Lerner RN) BPH (benign prostatic hyperplasia) Elevated cholesterol Sleep apnea Asthma Diabetes HTN (hypertension) Chronic renal insufficiency Surgical History Surgical History Hx of arthroscopic knee surgery Hx of colonoscopy Hx of appendectomy Hx of total knee replacement Hx of bilateral hip replacements Hx laparoscopic cholecystectomy Social History Social History (Updated 08/15/23 @ 10:49 by Beryl Barr PA-C) Household Members Other:: Are you a primary rn progressive care unit to a significant other at home: No Do you presently have visiting nurse or other home services: No Alcohol intake: never Patient Tobacco Use Status: Never used Tobacco Use of substances other than those prescribed or required for medical reasons: No Have you been hit, kicked, punched, or otherwise hurt by someone within the past year? If so, by whom?: No Are you DNR?: No Advance Directives Information Provided: Yes (as above noted) Advance Directives on File: No Recently lost weight without trying: No Eating poorly because of decreased appetite: No Nutrition Risks: Surgical patient >75years Poor oral hygiene: No Meds Allergies Allergy/AdvReac Type Severity Reaction Status Date / Time Penicillins [PCN] Allergy Unknown UNKNOWN Verified 08/15/23 10:29 Home Medications ?Medication ?Instructions ?Recorded ?Confirmed ?Last Taken ?Type albuterol sulfate 90 mcg/actuation 1 inh inhalation Q4H PRN Shortness 02/12/23 12/13/23 Unknown History aerosol inhaler Of Breath allopurinol 300 mg tablet 300 mg PO DAILY 02/12/23 12/13/23 Unknown History amlodipine 10 mg tablet 10 mg PO DAILY 02/12/23 12/13/23 Unknown History atorvastatin 80 mg tablet 80 mg PO DAILY 02/12/23 12/13/23 Unknown History calcitriol 0.5 mcg capsule 0.5 mcg PO DAILY 02/12/23 12/13/23 Unknown History carvedilol 25 mg tablet 25 mg PO BID 02/12/23 12/13/23 Unknown History cholecalciferol (vitamin D3) 50 50 mcg PO DAILY 02/12/23 12/13/23 Unknown History mcg (2,000 unit) capsule clonidine HCl 0.1 mg tablet 0.1 mg PO TID 02/12/23 12/13/23 Unknown History doxazosin 4 mg tablet 4 mg PO DAILY 02/12/23 12/13/23 Unknown History duloxetine 60 mg capsule,delayed 120 mg PO DAILY 02/12/23 12/13/23 Unknown History release fluticasone furoate 200 1 ea inhalation DAILY 02/12/23 12/13/23 Unknown History mcg-vilanterol 25 mcg/dose inhalation powder (Breo Ellipta) insulin glargine 100 unit/mL (3 30 unit subcut QAM 02/12/23 12/13/23 Unknown History mL) subcutaneous pen (Basaglar KwikPen U-100 Insulin) tamsulosin 0.4 mg capsule 0.4 mg PO DAILY 02/12/23 12/13/23 Unknown History Exam Height,Weight and Vital Signs: Height 6 ft 2.5 in Weight 128.82 kg Assessment and Plan Assessment Anesthesia Assessment: Chart Reviewed Documented by User: Carin Umanzor DO 12/17/23 08:01 HPI - Anesthesia Eval Consult details Narrative: 78yo M for Upper Endoscopy and Colonoscopy CRI with baseline creat 2.5 POC glucose 74 in pre-op [facility] Past Medical History Medical History (Updated 12/13/23 @ 14:42 by Na Lerner RN) BPH (benign prostatic hyperplasia) Elevated cholesterol Sleep apnea Asthma Diabetes HTN (hypertension) Chronic renal insufficiency Family History Family history of problems with anesthesia: No Surgical History Surgical History Hx of arthroscopic knee surgery Hx of colonoscopy Hx of appendectomy Hx of total knee replacement Hx of bilateral hip replacements Hx laparoscopic cholecystectomy History of Problems with Anesthesia: No Social History Social History (Updated 08/15/23 @ 10:49 by Beryl Barr PA-C) Household Members Other:: Are you a primary rn progressive care unit to a significant other at home: No Do you presently have visiting nurse or other home services: No Alcohol intake: never Patient Tobacco Use Status: Never used Tobacco Use of substances other than those prescribed or required for medical reasons: No Have you been hit, kicked, punched, or otherwise hurt by someone within the past year? If so, by whom?: No Are you DNR?: No Advance Directives Information Provided: Yes (as above noted) Advance Directives on File: No Recently lost weight without trying: No Eating poorly because of decreased appetite: No Nutrition Risks: Surgical patient >75years Poor oral hygiene: No Meds Allergies Allergy/AdvReac Type Severity Reaction Status Date / Time Penicillins [PCN] Allergy Unknown UNKNOWN Verified 08/15/23 10:29 Home Medications ?Medication ?Instructions ?Recorded ?Confirmed ?Last Taken ?Type albuterol sulfate 90 mcg/actuation 1 inh inhalation Q4H PRN Shortness 02/12/23 12/13/23 Unknown History aerosol inhaler Of Breath allopurinol 300 mg tablet 300 mg PO DAILY 02/12/23 12/13/23 Unknown History amlodipine 10 mg tablet 10 mg PO DAILY 02/12/23 12/13/23 Unknown History atorvastatin 80 mg tablet 80 mg PO DAILY 02/12/23 12/13/23 Unknown History calcitriol 0.5 mcg capsule 0.5 mcg PO DAILY 02/12/23 12/13/23 Unknown History carvedilol 25 mg tablet 25 mg PO BID 02/12/23 12/13/23 Unknown History cholecalciferol (vitamin D3) 50 50 mcg PO DAILY 02/12/23 12/13/23 Unknown History mcg (2,000 unit) capsule clonidine HCl 0.1 mg tablet 0.1 mg PO TID 02/12/23 12/13/23 Unknown History doxazosin 4 mg tablet 4 mg PO DAILY 02/12/23 12/13/23 Unknown History duloxetine 60 mg capsule,delayed 120 mg PO DAILY 02/12/23 12/13/23 Unknown History release fluticasone furoate 200 1 ea inhalation DAILY 02/12/23 12/13/23 Unknown History mcg-vilanterol 25 mcg/dose inhalation powder (Breo Ellipta) insulin glargine 100 unit/mL (3 30 unit subcut QAM 02/12/23 12/13/23 Unknown History mL) subcutaneous pen (Basaglar KwikPen U-100 Insulin) tamsulosin 0.4 mg capsule 0.4 mg PO DAILY 02/12/23 12/13/23 Unknown History Exam Exam Date and Time: December 17, 2023 0757 Height,Weight and Vital Signs: Height 6 ft 2.5 in Weight 128.82 kg Vital Signs Temperature 97.4 F 12/17/23 07:25 Pulse Rate 62 12/17/23 07:25 Respiratory Rate 20 12/17/23 07:25 Blood Pressure 184/71 H 12/17/23 07:25 Pulse Oximetry 99 12/17/23 07:25 Oxygen Delivery Method Room Air 12/17/23 07:25 Temperature 97.4 F 12/17/23 07:25 Pulse Rate 62 12/17/23 07:25 Respiratory Rate 20 12/17/23 07:25 Blood Pressure 184/71 H 12/17/23 07:25 Pulse Oximetry 99 12/17/23 07:25 Oxygen Delivery Method Room Air 12/17/23 07:25 Airway Mallampati Class: II TM Dist: >3cm Neck ROM: Full Loose/Missing/Broken Teeth: No (patient denies any loose or broken teeth) Heart: S1S2 Lungs: CTAB Assessment and Plan Assessment Anesthesia Assessment: Anesthesia Plan Discussed and Chart Reviewed Final Anesthetic Review Family History of Problems with Anesthesia: No History of Problems with Anesthesia: No NPO: Yes ASA Class: III Final Preanesthetic Review: No Changes in Pt Med Stat, Meds/Allgs Chart Reviewed, Consent Obtained/Reviewed and Anes Risks/Benef Reviewed Patient Risk: Intermediate Procedure Risk: Low Anesthetic Plan Anesthetic Plan: MAC: and Agree w/ Assess. and Plan Disposition: Standard PACU
--- NOTE | 2023-12-17 08:28 | HO.OPN-COLON ---
Colonoscopy Operative Note Operative Note Date of Service: 12/17/23 Narrative: Operative Information Procedure Description: EGD, Colonoscopy Indication: diarrhea Anesthesia: MAC FLEXIBLE TRANSORAL UPPER GASTROINTESTINAL ENDOSCOPY AND COLONOSCOPY PROCEDURE NOTE UPPER ENDOSCOPY Consent: Indications for the procedure and potential complications of bleeding, perforation, reaction to medications and missed diagnosis were discussed with the patient and informed consent was obtained. Instrument: Olympus GIF H 190 J mid size upper endoscope Monitoring: Vital signs and clinical assessment, continuous EKG monitoring, Pulse oximetry, Carbon Dioxide monitoring and blood pressure monitoring were done throughout the procedure. Procedure: The patient was placed in the left lateral decubitis position and pre-procedure medications were administered and a bite block was placed. The endoscope was inserted into the mouth and advanced under direct vision to the third part of duodenum. A careful inspection was made as the upper endoscope was withdrawn including a retroflexed examination of the proximal stomach; Findings and interventions are described below. Findings: Larynx:normal Esophagus: GE junction at 40 cm, diaphragm hiatus at 40 cm, schatzki ring with some mild esophagitis noted, bx taken from GEJ Stomach: Normal mucosa. Biopsies were obtained. Grade 2 flap valve on retroflexed examination of the cardia. Few benign fundic gland polyps noted Duodenum: Patchy erosions, with edema and erythema in bulb and descending duodenum Intervention: Biopsies as noted above, COLONOSCOPY Instrument: Olympus variable stiffness pediatric scope 190L Colonoscopy Monitoring: Vital signs and clinical assessment, continuous EKG monitoring, Pulse oximetry, Carbon Dioxide monitoring and blood pressure monitoring were done throughout the procedure. Colon withdrawal time was 8 minutes. Procedure: The patient was placed in the left lateral decubitis position and pre-procedure medications were administered. After a digital rectal examination of the ano-rectum, the video colonoscope was inserted into the rectum and advanced through the colon to the ascending colon. The colonoscope was slowly withdrawn in a retrograde panoramic fashion and the colon mucosa was carefully examined including a retroflexed view of the rectum. Findings and interventions are described below. Procedure Difficulty: difficult due to redundant colon Findings: Random colon bx taken Terminal Ileum-not reached Cecum:not reached Ascending Colon: normal Transverse Colon -normal Descending Colon:normal Sigmoid Colon: 13-14 mm sessile polyp removed with cold snare and x 3 clips applied for hemostasis Rectum: Retroflexion with small internal hemorrhoids, grade I Anorectum - normal Colon preparation: [place] Bowel Preparation Scale Right colon; 2 Transverse colon: 2 Left colon; 2 (0 = Unprepared colon segment with mucosa not seen due to solid stool that cannot be cleared. 1 = Portion of mucosa of the colon segment seen, but other areas of the colon segment not well seen due to staining, residual stool and/or opaque liquid. 2 = Minor amount of residual staining, small fragments of stool and/or opaque liquid, but mucosa of colon segment seen well. 3 = Entire mucosa of colon segment seen well with no residual staining, small fragments of stool or opaque liquid) Impression and Post Procedure Diagnosis: Endoscopy Findings: erosive duodenitis schatzki ring esophagitis Colonoscopy Findings: polyp internal hemorrhoids Plan: Await Pathology results Repeat Colonoscopy in 3-6 months with binder and prone position High fiber diet leaflet avoid straining at stool, epsom salts and sitz bath, anusol supps or cream commence PPi if not taking, if taking then increase dose or change Above findings were reviewed with the patient and relevant handouts were provided if indicated.
[2023-12-17 09:37] VITALS: BP 125/64; PULSE 80; RESP 16; TEMP 36.7; O2SAT 95
[2023-12-17 09:52] VITALS: BP 138/60; PULSE 65; RESP 16; O2SAT 98
[2023-12-17 10:07] VITALS: BP 135/70; PULSE 70; RESP 16; TEMP 36.6; O2SAT 98
== END 2023-12-17 10:45 | disposition home or self-care (01) ==
PROVIDERS: PCP Family Medicine; Visit Provider Internal Medicine Gastroenterology
PROC: (CPT 45385; principal; 2023-12-17 08:20)
DX: K52.9 Noninfective gastroenteritis and colitis, unspecified (principal); K59.00 Constipation, unspecified; D12.5 Benign neoplasm of sigmoid colon; K64.0 First degree hemorrhoids; Q43.8 Other specified congenital malformations of intestine; K29.80 Duodenitis without bleeding; K29.60 Other gastritis without bleeding; K22.2 Esophageal obstruction; K20.80 Other esophagitis without bleeding; K31.7 Polyp of stomach and duodenum; E11.22 Type 2 diabetes mellitus with diabetic chronic kidney disease; I12.9 Hypertensive chronic kidney disease with stage 1 through stage 4 chronic kidney disease, or unspecified chronic kidney disease; N18.9 Chronic kidney disease, unspecified; J45.909 Unspecified asthma, uncomplicated; D64.9 Anemia, unspecified; E66.9 Obesity, unspecified; Z68.36 Body mass index [BMI] 36.0-36.9, adult; G47.33 Obstructive sleep apnea (adult) (pediatric); Z79.4 Long term (current) use of insulin; Z88.0 Allergy status to penicillin; Z98.890 Other specified postprocedural states; Z79.899 Other long term (current) drug therapy
CPT/HCPCS: 45385; 45380; 43239; 82947; 88305; 88313; 88342; J2704

== ENCOUNTER → 2023-12-17 06:52 | Outpatient (BNV) | payer MEDICARE, BC, SELFPAY | PROVIDERS: PCP Family Medicine; Visit Provider Internal Medicine Gastroenterology | DX: R19.7 Diarrhea, unspecified (principal); D12.5 Benign neoplasm of sigmoid colon; K64.0 First degree hemorrhoids; K20.90 Esophagitis, unspecified without bleeding; K31.7 Polyp of stomach and duodenum; K29.80 Duodenitis without bleeding; K22.2 Esophageal obstruction | CPT/HCPCS: 43239; 45380; 45385 ==

== ENCOUNTER 2024-04-03 10:25 | Outpatient (REF) | payer MEDICARE, BC, SELFPAY ==
[2024-04-03 11:16] LABS: Basophils Absolute Auto 0.1 X10*3/uL (0.0-0.2); Basophils Percent Auto 0.4 % (0-2); Eosinophils Absolute Auto 0.3 X10*3/uL (0.0-0.4); Eosinophils Percent Auto 2.1 % (0-4); Hematocrit 30.9 % (42.0-52.0); Hemoglobin 9.7 g/dl (14.0-18.0); Imm Gran Abs Auto 0.09 X10*3/uL (0.00-0.03); Imm Gran Pct Auto 0.6 % (0.0-0.4); Lymphocytes Percent Auto 59.7 % (20-40); MANUAL DIFF FLAG SCAN; Mean Corpuscular HGB Conc 31.4 g/dl (31.0-36.0); Mean Corpuscular Hemoglobin 28.2 pg (27.0-33.0); Mean Corpuscular Volume 89.8 fL (80.0-98.0); Mean Platelet Volume 9.2 fL (9.4-12.4); Monocytes Absolute Auto 0.7 X10*3/uL (0.1-1.2); Monocytes Percent Auto 4.8 % (2-11); Neutrophils Absolute Auto 4.6 x10*3/uL (2.0-8.3); Neutrophils Percent Auto 32.4 % (45-73); Platelet Count 183 X10*3/uL (160-400); Red Blood Count 3.44 X10*6/uL (4.60-5.80); Red Cell Distribution Width 15.1 % (11.0-16.0); SCAN SMEAR FLAG 1; White Blood Count 14.2 X10*3/uL (4.8-10.8)
[2024-04-03 11:19] LABS: Lymphocytes Absolute Auto 8.5 X10*3/uL (1.2-4.9)
[2024-04-03 12:04] LABS: SLIDE REVIEW VERIFIED
== END 2024-04-03 10:26 | disposition home or self-care (01) ==
LOC: HO.LAB 10:25
PROVIDERS: PCP Family Medicine; Visit Provider Family Medicine
DX: D72.829 Elevated white blood cell count, unspecified (principal); R53.83 Other fatigue
CPT/HCPCS: 36415; 85025

== ENCOUNTER 2024-07-17 06:05 | Day surgery (SDC) | payer MEDICARE, SELFPAY ==
[2024-07-15 15:27] VITALS: BMI 36.0
--- NOTE | 2024-07-16 09:39 | HO.ANESPROP2 ---
Documented by User: Karen Jovel NP 07/16/24 09:39 HPI - Anesthesia Eval Consult details Narrative: 78yo M for Colonoscopy Anesthesia Pre-Procedure Meds Is the patient on any of the following meds?: SGLT2 Inhib PMFSH Active Problems Active Problems: All Active Problems Chronic diarrhea (Acute) CKD (chronic kidney disease) (Acute) HTN (hypertension) (Acute) Diabetes (Acute) Obesity (BMI 30-39.9) (Acute) Past Medical History Medical History BPH (benign prostatic hyperplasia) Elevated cholesterol Sleep apnea Asthma Diabetes HTN (hypertension) Chronic renal insufficiency Family History Family history of problems with anesthesia: No Surgical History Surgical History Hx of arthroscopic knee surgery Hx of colonoscopy Hx of appendectomy Hx of total knee replacement Hx of bilateral hip replacements Hx laparoscopic cholecystectomy History of Problems with Anesthesia: No Social History Social History (Updated 08/15/23 @ 10:49 by Beryl Barr PA-C) Household Members Other:: Are you a primary customer care voice consultant to a significant other at home: No Do you presently have visiting nurse or other home services: No Alcohol intake: never Patient Tobacco Use Status: Never used Tobacco Have you been hit, kicked, punched, or otherwise hurt by someone within the past year? If so, by whom?: No Are you DNR?: No Advance Directives: No Advance Directives Information Provided: Yes Recently lost weight without trying: No Nutrition Risks: No Nutritional Risk Meds Allergies Allergy/AdvReac Type Severity Reaction Status Date / Time Penicillins [PCN] Allergy Unknown UNKNOWN Verified 07/17/24 06:27 Home Medications ?Medication ?Instructions ?Recorded ?Confirmed ?Last Taken ?Type albuterol sulfate 90 mcg/actuation 1 inh inhalation Q4H PRN Shortness 02/12/23 07/17/24 Unknown History aerosol inhaler Of Breath allopurinol 300 mg tablet 300 mg PO DAILY 02/12/23 07/17/24 Unknown History amlodipine 10 mg tablet 10 mg PO DAILY 02/12/23 07/17/24 Unknown History atorvastatin 80 mg tablet 80 mg PO DAILY 02/12/23 07/17/24 Unknown History calcitriol 0.5 mcg capsule 0.5 mcg PO DAILY 02/12/23 07/17/24 Unknown History carvedilol 25 mg tablet 25 mg PO BID 02/12/23 07/17/24 Unknown History cholecalciferol (vitamin D3) 50 50 mcg PO DAILY 02/12/23 07/17/24 Unknown History mcg (2,000 unit) capsule clonidine HCl 0.1 mg tablet 0.1 mg PO TID 02/12/23 07/17/24 Unknown History doxazosin 4 mg tablet 4 mg PO DAILY 02/12/23 07/17/24 Unknown History duloxetine 60 mg capsule,delayed 120 mg PO DAILY 02/12/23 07/17/24 Unknown History release fluticasone furoate 200 1 ea inhalation DAILY 02/12/23 07/17/24 Unknown History mcg-vilanterol 25 mcg/dose inhalation powder (Breo Ellipta) insulin glargine 100 unit/mL (3 30 unit subcut QAM 02/12/23 07/17/24 Unknown History mL) subcutaneous pen (Basaglar KwikPen U-100 Insulin) tamsulosin 0.4 mg capsule 0.4 mg PO DAILY 02/12/23 07/17/24 Unknown History empagliflozin 10 mg tablet mg DAILY 07/16/24 07/16/24 07/10/24 History (Jardiance) Exam Height,Weight and Vital Signs: Height 6 ft 2.5 in Weight 128.82 kg Assessment and Plan Assessment Anesthesia Assessment: Chart Reviewed Final Anesthetic Review Family History of Problems with Anesthesia: No History of Problems with Anesthesia: No Documented by User: Reji Trujillo MD 07/17/24 07:33 PMF Past Medical History Medical History BPH (benign prostatic hyperplasia) Elevated cholesterol Sleep apnea Asthma Diabetes HTN (hypertension) Chronic renal insufficiency Surgical History Surgical History Hx of arthroscopic knee surgery Hx of colonoscopy Hx of appendectomy Hx of total knee replacement Hx of bilateral hip replacements Hx laparoscopic cholecystectomy Social History Social History (Updated 08/15/23 @ 10:49 by Beryl Barr PA-C) Household Members Other:: Are you a primary customer care voice consultant to a significant other at home: No Do you presently have visiting nurse or other home services: No Alcohol intake: never Patient Tobacco Use Status: Never used Tobacco Have you been hit, kicked, punched, or otherwise hurt by someone within the past year? If so, by whom?: No Are you DNR?: No Advance Directives: No Advance Directives Information Provided: Yes Recently lost weight without trying: No Nutrition Risks: No Nutritional Risk Meds Allergies Allergy/AdvReac Type Severity Reaction Status Date / Time Penicillins [PCN] Allergy Unknown UNKNOWN Verified 07/17/24 06:27 Home Medications ?Medication ?Instructions ?Recorded ?Confirmed ?Last Taken ?Type albuterol sulfate 90 mcg/actuation 1 inh inhalation Q4H PRN Shortness 02/12/23 07/17/24 Unknown History aerosol inhaler Of Breath allopurinol 300 mg tablet 300 mg PO DAILY 02/12/23 07/17/24 Unknown History amlodipine 10 mg tablet 10 mg PO DAILY 02/12/23 07/17/24 Unknown History atorvastatin 80 mg tablet 80 mg PO DAILY 02/12/23 07/17/24 Unknown History calcitriol 0.5 mcg capsule 0.5 mcg PO DAILY 02/12/23 07/17/24 Unknown History carvedilol 25 mg tablet 25 mg PO BID 02/12/23 07/17/24 Unknown History cholecalciferol (vitamin D3) 50 50 mcg PO DAILY 02/12/23 07/17/24 Unknown History mcg (2,000 unit) capsule clonidine HCl 0.1 mg tablet 0.1 mg PO TID 02/12/23 07/17/24 Unknown History doxazosin 4 mg tablet 4 mg PO DAILY 02/12/23 07/17/24 Unknown History duloxetine 60 mg capsule,delayed 120 mg PO DAILY 02/12/23 07/17/24 Unknown History release fluticasone furoate 200 1 ea inhalation DAILY 02/12/23 07/17/24 Unknown History mcg-vilanterol 25 mcg/dose inhalation powder (Breo Ellipta) insulin glargine 100 unit/mL (3 30 unit subcut QAM 02/12/23 07/17/24 Unknown History mL) subcutaneous pen (Basaglar KwikPen U-100 Insulin) tamsulosin 0.4 mg capsule 0.4 mg PO DAILY 02/12/23 07/17/24 Unknown History empagliflozin 10 mg tablet mg DAILY 07/16/24 07/16/24 07/10/24 History (Jardiance) Exam Airway Mallampati Class: II TM Dist: >3cm Neck ROM: Full Heart: ok Lungs: ok. BETANCOURT Assessment and Plan Assessment Anesthesia Assessment: Anesthesia Plan Discussed Final Anesthetic Review NPO: Yes ASA Class: III and IV Final Preanesthetic Review: No Changes in Pt Med Stat, Meds/Allgs Chart Reviewed, Consent Obtained/Reviewed and Anes Risks/Benef Reviewed Patient Risk: High Procedure Risk: Low Anesthetic Plan Anesthetic Plan: MAC: and Agree w/ Assess. and Plan Disposition: Standard PACU
[2024-07-17 06:46] VITALS: BMI 37.0
[2024-07-17] MEDS: Lactated Ringers 1,000 ML 100 ML IVCONT (06:52)
[2024-07-17 07:00] VITALS: BP 165/80; PULSE 68; RESP 18; TEMP 36.7; O2SAT 99
[2024-07-17 07:03] LABS: Glucose, Whole Blood 119 mg/dL (60-115)
--- NOTE | 2024-07-17 07:44 | P.HPSUR_ITS ---
Pre-Procedural Eval Section A - 24 Hr Update-Section A only Date of Service: 07/17/24 Section B - Complete if H&P > 30 days Chief Complaint: gastroenteritis and colitis,kidney disease Relevant Family History (Specify if Yes): No Relevant Social History: None Present Medications: see Short Stay Collaborative assessment Medical History: Significant History (BPH (benign prostatic hyperplasia) Elevated cholesterol Sleep apnea Asthma Diabetes HTN (hypertension) Chronic renal insufficiency) History of Previous Operations: Relevant previous surgery/procedure and date(s) ( Hx of arthroscopic knee surgery Hx of colonoscopy Hx of appendectomy Hx of total knee replacement Hx of bilateral hip replacements Hx laparoscopic cholecystectomy) Allergies: Allergies Allergy/AdvReac Type Severity Reaction Status Date / Time Penicillins [PCN] Allergy Unknown UNKNOWN Verified 07/17/24 06:27 Review of Systems Sugical H&P ROS: Negative: Constitution, Cardiovascular, Respiratory, Neurological, Psychiatric, Hem-Onc, Allergic/Immunologic, Gastrointestinal, Genitourinary, Musculoskeletal, Integumentary, Endocrine and Eyes/Ears/Nose/Throat Exam Surgical H&P Exam: Normal: HEENT, Normal: Heart, Normal: Lungs, Normal: Ext remities, Normal: Abdomen, Normal: Skin and Normal: Neurological Plan Diagnosis/Plan: Unchanged I have reviewed the history and physical and performed a pertinent physical examination on my patient. No changes have occurred unless specified. Time Spent With Patient Time: Total time managing care of this patient today ____ minutes.
--- NOTE | 2024-07-17 08:25 | P.OPN-COLO_ITS ---
Colonoscopy Operative Note Operative Note Date of Service: 07/17/24 Narrative: Operative Information Procedure Description: Colonoscopy Indication: hx of polyps Anesthesia: MAC COLONOSCOPY Instrument: Olympus variable stiffness adult scope 190L Colonoscopy Monitoring: Vital signs and clinical assessment, continuous EKG monitoring, Pulse oximetry, Carbon Dioxide monitoring and blood pressure monitoring were done throughout the procedure. Colon withdrawal time was 15 minutes. Procedure: The patient was placed in the left lateral decubitis position and pre-procedure medications were administered. After a digital rectal examination of the ano-rectum, the video colonoscope was inserted into the rectum and advanced through the colon to the cecum/TI. The colonoscope was slowly withdrawn in a retrograde panoramic fashion and the colon mucosa was carefully examined including a retroflexed view of the rectum. Findings and interventions are described below. Procedure Difficulty: difficult Findings: Terminal Ileum-not reached Cecum:not reached Ascending Colon: normal Transverse Colon - 10 mm sessile polyp removed with cold snare Descending Colon: 11-12 mm sessile polyp removed with cold snare Sigmoid Colon: midl diverticulosis Rectum: Retroflexion with small internal hemorrhoids seen, grade I Anorectum - normal Intervention: cold snare Colon preparation: [place] Bowel Preparation Scale Right colon; 2 Transverse colon: 2 Left colon; 2 (0 = Unprepared colon segment with mucosa not seen due to solid stool that cannot be cleared. 1 = Portion of mucosa of the colon segment seen, but other areas of the colon segment not well seen due to staining, residual stool and/or opaque liquid. 2 = Minor amount of residual staining, small fragments of stool and/or opaque liquid, but mucosa of colon segment seen well. 3 = Entire mucosa of colon segment seen well with no residual staining, small fragments of stool or opaque liquid) Impression and Post Procedure Diagnosis: diverticulosis colon polyps internal hemorrhoids Plan: High fiber diet leaflet Avoid straining at stool, epsom salts and sitz bath, anusol supps or cream Repeat Colonoscopy in 1 year or earlier if clinically indicated, we used colowarp today and did not really help, next time can consider prone position, o/p Ct colonography Above findings were reviewed with the patient and relevant handouts were provided if indicated.
[2024-07-17 08:31] VITALS: BP 114/49; PULSE 62; RESP 20; TEMP 36.3; O2SAT 97
[2024-07-17 08:45] VITALS: BP 161/70; PULSE 65; RESP 18; O2SAT 97
[2024-07-17 09:00] VITALS: BP 153/82; PULSE 65; RESP 18; TEMP 36.3; O2SAT 97
== END 2024-07-17 09:20 | disposition home or self-care (01) ==
PROVIDERS: PCP Family Medicine; Visit Provider Internal Medicine Gastroenterology
PROC: 0DJD8ZZ Inspection of Lower Intestinal Tract, Via Natural or Artificial Opening Endoscopic (ICD-10-PCS; CPT 45378; principal; 2024-07-17 07:30)
DX: Z12.11 Encounter for screening for malignant neoplasm of colon (principal); K51.40 Inflammatory polyps of colon without complications; K57.30 Diverticulosis of large intestine without perforation or abscess without bleeding; K64.0 First degree hemorrhoids; Z86.0101 Personal history of adenomatous and serrated colon polyps; K52.9 Noninfective gastroenteritis and colitis, unspecified; E11.22 Type 2 diabetes mellitus with diabetic chronic kidney disease; I12.9 Hypertensive chronic kidney disease with stage 1 through stage 4 chronic kidney disease, or unspecified chronic kidney disease; N18.9 Chronic kidney disease, unspecified; E78.5 Hyperlipidemia, unspecified; J45.909 Unspecified asthma, uncomplicated; G47.33 Obstructive sleep apnea (adult) (pediatric); Z99.89 Dependence on other enabling machines and devices; Z79.4 Long term (current) use of insulin; Z79.899 Other long term (current) drug therapy; Z79.02 Long term (current) use of antithrombotics/antiplatelets
CPT/HCPCS: 45385; 82947; 88305; J2003; J2704

== ENCOUNTER → 2024-07-17 06:05 | Outpatient (BNV) | payer MEDICARE, SELFPAY | PROVIDERS: PCP Family Medicine; Visit Provider Internal Medicine Gastroenterology | DX: Z12.11 Encounter for screening for malignant neoplasm of colon (principal); Z86.0100 Personal history of colon polyps, unspecified; D12.3 Benign neoplasm of transverse colon; K57.30 Diverticulosis of large intestine without perforation or abscess without bleeding; K64.0 First degree hemorrhoids | CPT/HCPCS: 45385 ==